=== PATIENT | male | born 1980 | race Caucasian/White ===

== ENCOUNTER → 2022-05-27 15:27 | Outpatient (CLI) | payer BC, SELFPAY ==
--- NOTE | 2022-05-27 | DI.RAD_ITS ---
Exam(s) XR CHEST 2V PA LATERAL EXAM: XR CHEST 2V PA LATERAL CLINICAL HISTORY: SOB R06.02 TECHNIQUE: 2D digital imaging was performed. COMPARISON: No exams were available for comparison FINDINGS: The heart is not enlarged. The lungs are clear and well expanded. No pleural effusion seen. Mediastin al contours appear intact. IMPRESSION: Normal chest. RADIATION DOSE DELIVERED: Total DLP
== END ==
PROVIDERS: PCP Physician Assistant; Visit Provider Physician Assistant Medical
DX: R06.02 Shortness of breath (principal)
CPT/HCPCS: 71046

== ENCOUNTER 2022-05-27 15:46 | Outpatient (REF) | payer BC, SELFPAY ==
[2022-05-27 21:22] LABS: Abs Immature Grans 0.03 10^3/uL (0.0-0.06); Absolute Basophil Count 0.06 10^3/uL (0.0-0.2); Absolute Eosinophil Count 1.05 10^3/uL (0.0-0.7); Absolute Lymphocyte Count 2.07 10^3/uL (1.2-3.4); Absolute Monocyte Count 0.88 10^3/uL (0.1-0.8); Absolute Neutrophil Count 6.65 10^3/uL (1.2-6.7); Basophils % 0.6; Eosinophils % 9.8; HCT 42.2 % (40.0-50.0); HGB 15.2 g/dL (13.5-17.5); Immature Grans % 0.3; Lymphocytes % 19.3; MCH 32.5 pg (27.0-33.0); MCV 90 fL (80-95); MPV 9.9 fL (8.0-11.0); Monocytes % 8.2; Neutrophils % 61.8; Platelet Count 388 10^3/uL (130-400); RBC 4.67 10^6/uL (4.36-5.78); RDW 11.9 % (11.8-14.1); RDW-SD 38.7 fL; WBC 10.74 10^3/uL (4.4-10.8)
[2022-05-27 21:33] LABS: Anion Gap 10.7 mmol/L (3-11); BUN 18 mg/dL (7-18); CO2 24.3 mmol/L (21.0-32.0); Calcium 9.2 mg/dL (8.5-10.1); Chloride 105 mmol/L (98-107); Glucose 86 mg/dL (74-106); Potassium 4.1 mmol/L (3.5-5.1); Sodium 140 mmol/L (136-145)
== END 2022-05-27 15:47 | disposition home or self-care (01) ==
LOC: LBN 15:46
PROVIDERS: PCP Physician Assistant; Visit Provider Physician Assistant Medical
DX: R06.02 Shortness of breath (principal)
CPT/HCPCS: 80048; 85025

== ENCOUNTER 2022-08-30 09:01 | Emergency (ER) | payer BC, SELFPAY ==
--- NOTE | 2022-08-30 09:15 | DI.US_ITS ---
Exam(s) US SCROTUM EXAM: US SCROTUM CLINICAL HISTORY: right scrotal bleeding/hematoma, post vasectomy. TECHNIQUE: Scrotal ultrasound performed using grayscale, color-flow and spectral Doppler analysis. COMPARISON: No exams were available for comparison FINDINGS: Right testicle: 4.8 x 2.1 x 4 cm Left testicle: 3.2 x 1.9 x 1.9 cm Echogenicity: Normal. Contour: Smooth. Mass: None seen. Microlithiasis: None. Hydrocele: Left none. 7.7 x 3.9 x 6.7 centimeter complex collection is noted in the scrotal sac post erior to the testicle. This consistent with a postsurgical seroma or hematoma. Variocele: None. Hernia: No peristalsing bowel loop identified. Epididymis: Normal. Lymph nodes: Mildly enlarged groin lymph nodes, the largest is on the right measuring 2 cm in length, consistent with reactive lymph nodes. DOPPLER: Color: Symmetric and uniform, no hyperemia. Duplex: Bilateral testicular arterial waveforms visualized. IMPRESSION: Normal appearing bilateral testicles. Postsurgical hematoma or seroma post interior to the right testicle. Results of this exam have been verbally communicated with the emergency department provider. DATA REPOSITORY:
[2022-08-30 09:19] VITALS: BP 165/103; PULSE 104; RESP 17; TEMP 36.5; O2SAT 99
--- NOTE | 2022-08-30 09:32 | W.ED.GENAD ---
Discharge Plan Disposition Patient Disposition: Home Condition: Good Discharge Details Chief Complaint: Laceration Clinical Impression: Complication, postoperative, Hematoma of scrotum Primary Care Provider: ALBER MARTINEZ ED Provider: Sky Torres Home Meds and New Rx's Prescriptions: No Action oxycodone 10 mg tablet 10 mg PO Q6H MDD 4 PRN (Reason: pain) Qty: 20 0RF Rx Instructions: Do not fill till 08/27/22 Discharge Instructions Instructions: Hematoma (ED) Additional Instructions: Dr. Travis would like to perform surgery tomorrow. Please arrive here at 9 AM. Do not eat anything after midnight tonight. Take the pain medications we have given you as needed. You can double them if necessary. If you notice any worsening of your symptoms, or any new symptoms such as vomiting, diarrhea, fever, chills, shortness of breath, chest pain, numbness, weakness, or fainting , please return immediately to the emergency department for reevaluation. Please follow up with your primary care provider as soon as possible for reassessment and reevaluation. As always, it was a pleasure participating in your medical care today. Referrals: ALBER MARTINEZ [Primary Care Provider] - Manolo Travis MD [ [facility] STAFF PHYSICIAN] - Medical Decision Making 41-year-old male with a past medical history of a vasectomy on 13 August, with subsequent hematoma which spontaneously began draining on Tuesday of last week which was 6 days ago. There was a subsequent episode of draining a day or so ago as well. The initial large amount of swelling has diminished per the patient however significant swelling and firmness is still continued. He also has notable pain in the right scrotum in the postoperative area. No other complaints at this time. No urinary changes otherwise. He has been taking oxycodone at home for pain. He denies fever or chills. Physical exam demonstrates notable enlargement of the area around the right testicle which on palpation feels to be a hematoma. Also some enlargement on the left as well. Tenderness is present in both areas worse on the right though. Tenderness extends up the right inguinal canal. Minimal penile tenderness. No penile swelling. There does appear to be a small amount of bloody ooze still coming from the burst site. Differential includes continued hematoma, less likely abscess. We will get an ultrasound, monitor closely and reassess. 12:01 PM Ultrasound results show evidence of normal-appearing testicles bilaterally, postsurgical hematoma or seroma in the posterior anterior right testicle area. Right groin lymphadenopathy noted with large lymph nodes. Complex fluid collection is 7.7 x 3.9 x 6.7 cm. We did reach out to Bette Brennan of urology, she recommends evaluation by Dr. Travis for potential surgical drainage. Dr. Travis will come and evaluate the patient after his current operative case. Patient will be given pain medications, and we will get basic labs in case he does need to go to the OR. 1:[address] Travis came and evaluated the patient. He would like to bring the patient to the OR tomorrow morning. Patient will be discharged with his planned OR visit tomorrow at 9. Discussed red flags which to return. We will give some additional pain medications for home use. I have extensively reviewed the treatment plan and discharge instructions with the patient. I have addressed all patient concerns at this time. The patient was made aware of what symptoms to monitor for that would warrant a return to the emergency department. Discussed the plan with the patient, they demonstrate verbal understanding and agreement with our assessment and plan at this time. The documentation in this chart was dictated using [employer] dictation software. Please excuse any dictation errors. FINDINGS: Right testicle: 4.8 x 2.1 x 4 cm Left testicle: 3.2 x 1.9 x 1.9 cm Echogenicity: Normal. Contour: Smooth. Mass: None seen. Microlithiasis: None. Hydrocele: Left none. 7.7 x 3.9 x 6.7 centimeter complex collection is noted in the scrotal sac posterior to the testicle. This consistent with a postsurgical seroma or hematoma. Variocele: None. Hernia: No peristalsing bowel loop identified. Epididymis: Normal. Lymph nodes: Mildly enlarged groin lymph nodes, the largest is on the right measuring 2 cm in length, consistent with reactive lymph nodes. DOPPLER: Color: Symmetric and uniform, no hyperemia. Duplex: Bilateral testicular arterial waveforms visualized. IMPRESSION: Normal appearing bilateral testicles. Postsurgical hematoma or seroma post interior to the right testicle. Results of this exam have been verbally communicated with the emergency department provider. Sign Out No HPI General Date/Time Provider Initiated Documentation: 08/30/22 09:05. HPI Narrative: 41-year-old male with a past medical history of a vasectomy on 13 August, with subsequent hematoma which spontaneously began draining on Tuesday of last week which was 6 days ago. There was a subsequent episode of draining a day or so ago as well. The initial large amount of swelling has diminished per the patient however significant swelling and firmness is still continued. He also has notable pain in the right scrotum in the postoperative area. No other complaints at this time. No urinary changes otherwise. He has been taking oxycodone at home for pain. He denies fever or chills. Related Data Home Medications Medication Instructions Recorded Confirmed oxycodone 10 mg tablet 10 mg PO Q6H PRN pain #20 tabs 08/25/22 08/30/22 Previous Rx's Medication Instructions Recorded oxycodone 10 mg tablet 10 mg PO Q6H PRN pain #20 tabs 08/25/22 Allergies Allergy/AdvReac Type Severity Reaction Status Date / Time No Known Allergies Allergy Verified 08/30/22 09:26 General Stated Complaint: Laceration ELVIS: 3 Review of Systems All systems reviewed & are unremarkable except as noted in HPI and below PFSH All Active Problems (Updated 08/30/22 @ 13:28 by PITER HAIDER) Post surgical complication (Acute) Hematoma of scrotum (Acute) Social History Smoking/Tobacco Use Status: Never Smoking risk assessment performed?: Yes Alcohol Intake: current Alcohol Intake frequency: a few times a week Alcohol type: beer Drug use: Never Substance use type: does not use Do you feel safe at home: Yes Do you feel safe in your relationship?: Yes Exam Narrative Exam Narrative: 1.Const: Well-nourished, Well-developed, appearing stated age 2.Eyes: PERRL, no conjunctival injection, and symmetrical lids. 3.ENT: Atraumatic external nose and ears. Moist MM. Neck: Symmetric, trachea midline, No thyromegaly. 4.CVS: +S1/S2, No murmurs or gallops. Peripheral pulses 2+ and equal in all extremities. Brisk capillary refill in all extremities. 5.RESP: Unlabored respiratory effort. Clear to auscultation bilaterally. No wheezes rales or rhonchi 6.GI: Soft, Nontender/Nondistended, No hepatosplenomegaly. No guarding or rebound. Right scrotum demonstrates notable enlargement of the area around the right testicle which on palpation feels to be a hematoma. Also some enlargement on the left as well. Tenderness is present in both areas worse on the right though. Tenderness extends up the right inguinal canal. Minimal penile tenderness. No penile swelling. There does appear to be a small amount of bloody ooze still coming from the burst site. 7.MSK: Normocephalic/Atraumatic, Extremities w/o deformity or ttp No cyanosis or clubbing, Normal movement of all extremities 8.Skin: Warm, Dry. No rashes or lesions. 9.Neuro: senior writer II-XII grossly intact. Sensation grossly intact, no focal neurologic deficits. 10.Psych: (AAO) x3. Appropriate mood and affect Course Vital Signs Vital signs: Vital Signs Temperature 36.5 C 08/30/22 09:19 Pulse 104 H 08/30/22 09:19 Respiratory Rate 17 08/30/22 09:19 Blood Pressure 165/103 H 08/30/22 09:19 Pulse Oximetry 99 08/30/22 09:19 Temperature 36.5 C 08/30/22 09:19 Temperature Source Temporal Artery Scan 08/30/22 09:19 Pulse 104 H 08/30/22 09:19 Respiratory Rate 17 08/30/22 09:19 Respiratory Effort Non-Labored 08/30/22 09:23 Blood Pressure 165/103 H 08/30/22 09:19 Blood Pressure Position Sitting 08/30/22 09:19 Pulse Oximetry 99 08/30/22 09:19 Oxygen Delivery Method Room Air 08/30/22 09:19 Oxygen Flow Rate 0 08/30/22 09:19 Pain Level 10 08/30/22 09:23 PAWSS Have you Been Recently Intoxicated or Drunk Within the Last 30 days?: No Have you Ever Experienced Previous Episodes of Alcohol Withdrawal?: No Have you ever Experienced Withdrawal Seizures?: No Have you ever Experienced Delirium Tremens(DT)s?: No Have you ever undergone Alcohol Rehabilitation Treatment (i.e, inpt ot outpatient treatment programs)?: No Have you ever Experienced Blackouts?: No Have you ever Combined Alcohol with other Downers within the last 90 days?: No Have you ever Combined Alcohol with any other Substance of Abuse during the last 90 days?: No Result: 0
[2022-08-30] MEDS: Ketorolac 15 MG/ML VIAL IVP (12:04)
[2022-08-30] MEDS: MORPHine 4 MG/ML SYR IVP (12:04)
[2022-08-30 12:07] LABS: Abs Immature Grans 0.04 10^3/uL (0.0-0.06); Absolute Basophil Count 0.03 10^3/uL (0.0-0.2); Absolute Eosinophil Count 0.18 10^3/uL (0.0-0.7); Absolute Lymphocyte Count 1.48 10^3/uL (1.2-3.4); Absolute Monocyte Count 0.86 10^3/uL (0.1-0.8); Basophils % 0.3; Eosinophils % 1.6; HCT 39.2 % (40.0-50.0); HGB 13.7 g/dL (13.5-17.5); Immature Grans % 0.4; MCHC 34.9 % (32.0-36.0); MCV 92 fL (80-95); MPV 8.1 fL (8.0-11.0); Monocytes % 7.5; Neutrophils % 77.2; Platelet Count 501 10^3/uL (130-400); RBC 4.28 10^6/uL (4.36-5.78); RDW 11.8 % (11.8-14.1); RDW-SD 39.5 fL; WBC 11.41 10^3/uL (4.4-10.8)
[2022-08-30 12:12] LABS: Absolute Neutrophil Count 8.81 10^3/uL (1.2-6.7)
[2022-08-30 12:17] LABS: ALT 18 U/L (16-63); AST 13 U/L (15-37); Albumin 3.7 g/dL (3.4-5.0); Alkaline Phosphatase 83 U/L (46-116); Anion Gap 8.8 mmol/L (3-11); BUN 13 mg/dL (7-18); Bilirubin, Total 0.5 mg/dL (0.2-1.0); CO2 27.2 mmol/L (21.0-32.0); CREATININE 1.1 mg/dL (0.70-1.30); Calcium 9.2 mg/dL (8.5-10.1); Chloride 100 mmol/L (98-107); Estimated GFR 85.95 (mL/min/1.73m2); Glucose 82 mg/dL (74-106); Sodium 136 mmol/L (136-145); Total Protein 8.1 g/dL (6.4-8.2)
[2022-08-30 13:36] VITALS: BP 140/86; PULSE 90; RESP 17; TEMP 36.5; O2SAT 99
== END 2022-08-30 13:39 | disposition home or self-care (01) ==
PROVIDERS: Emergency Provider Student in an Organized Health Care Education/Training Program; PCP Nurse Practitioner Family
DX: L76.32 Postprocedural hematoma of skin and subcutaneous tissue following other procedure (principal); Z98.52 Vasectomy status
CPT/HCPCS: 36415; 80053; 96374; 96375; 99284; 76870; 85025; 99283; J1885; J2270

== ENCOUNTER 2022-08-31 08:10 | Day surgery (SDC) | payer BC, SELFPAY ==
--- NOTE | 2022-08-31 07:16 | W.PM.HP.N ---
Date of service: 08/31/22 Time of Service: 09:55 Assessment and Plan Assessment and plan (1) Hematoma of scrotum: Status: Acute Assessment and plan: As he has failed conservative management, we will perform an incision and drainage procedure. I would expect to leave a small drain after the procedure and remove the drain later this week. History of Present Illness History of Present Illness Chief Complaint: Scrotal hematoma Narrative: This is a 41 year old man who underwent vasectomy about 2 to 3 weeks ago. He had pain and swelling following the procedure and has been identified as having a right sided scrotal hematoma. We expected the hematoma to reabsorb with conservative management, but the area began draining cutaneously and has not progressed quickly. He presents for I and D of the hematoma. He has not had any fever or chills. Review of Systems Narrative: No fevers or chills No vision change or dysphasia No diabetes or thyroid dysfunction No shortness of breath, cough or hemoptysis No chest pain or palpitations No nausea, vomiting, hepatitis, ulcers, jaundice No seizures, strokes or peripheral neuropathy No bleeding disorders or anemia No gout PFSH All Active Problems (Updated 08/30/22 @ 13:28 by PITER HAIDER) Post surgical complication (Acute) Hematoma of scrotum (Acute) Surgical History (Updated 08/30/22 @ 15:21 by Sayda Carrera RN) History of appendectomy Social History Smoking/Tobacco Use Status: Never Smoking risk assessment performed?: Yes Alcohol Intake: current Alcohol Intake frequency: a few times a week Alcohol type: beer Drug use: Never Substance use type: does not use Do you feel safe at home: Yes Do you feel safe in your relationship?: Yes Meds Allergies and Home Medications Allergies Allergy/AdvReac Type Severity Reaction Status Date / Time No Known Allergies Allergy Verified 08/30/22 09:26 Home Medications Medication Instructions Recorded Confirmed Type oxycodone 10 mg tablet 10 mg PO Q6H PRN pain #20 tabs 08/25/22 08/31/22 Rx Exam Const General: cooperative Neck Neck: supple Resp Effort & Inspection: normal respiratory effort Auscultation: clear to auscultation bilaterally Cardio Rate: regular rate Rhythm: regular rhythm GI Inspection: normal to inspection Palpation: soft Scrotum: scrotal swelling (right hemiscrotum enlarged and tender - not fluctuant - small open area ) Neuro General: patient alert, patient awake and patient oriented x3
[2022-08-31 08:23] VITALS: BP 149/96; PULSE 79; RESP 16; TEMP 36.7; O2SAT 98
[2022-08-31] MEDS: Lactated Ringers 1,000 ML 80 ML IV (09:15)
--- NOTE | 2022-08-31 10:06 | ANES.PREOP_ITS ---
General Info Date of Service Date Performed: 08/31/22 Height: 5 ft 11 in Weight: 84.6 kg Body Mass Index (BMI): 25.9 Surgical Procedure: Operation Date: 08/31/22 09:25 Proposed Procedure Side Surgeon p Scrotal I&D Right Manolo Travis MD Meds Allergies and Home Medications Allergies Allergy/AdvReac Type Severity Reaction Status Date / Time No Known Allergies Allergy Verified 08/30/22 09:26 Home Medication Medication Instructions Recorded oxycodone 10 mg tablet 10 mg PO Q6H PRN pain #20 tabs 08/25/22 Current Visit Medications: Current Medications Generic Name Dose Route Start Last Admin Trade Name Freq PRN Reason Stop Dose Admin Ringer's Solution 1,000 mls @ 80 mls/hr 08/31/22 06:00 08/31/22 09:15 IV 08/31/22 23:59 80 mls/hr INFUSION ALEJANDRO Administration Cefazolin Sodium/Dextrose 2 gm in 50 mls @ 100 mls/hr 08/31/22 06:00 Ancef Duplex IVPB 08/31/22 23:59 PREOP ALEJANDRO IV Miscellaneous Supplies 1 each 08/31/22 06:00 Iv Access IV 08/31/22 23:59 DIRECTED ALEJANDRO Sodium Chloride 0 ml 08/31/22 06:00 Normal Saline Flush 10 Ml Syr IV 08/31/22 23:59 PRN PRN Sodium Chloride 0 ml 08/31/22 06:00 Normal Saline 10 Ml Vial IJ 08/31/22 23:59 DIRECTED PRN Sterile Water 0 ml 08/31/22 06:00 Water,Injection,Sterile 10 Ml Vial IJ 08/31/22 23:59 DIRECTED PRN PFSH Active Problems Active Problems: Problem Status Onset Code Post surgical complication T81.9XXA Hematoma of scrotum S30.22XA Surgical History Surgical History (Updated 08/30/22 @ 15:21 by Sayda Carrera RN) History of appendectomy Tobacco Smoking/Tobacco Use Status: Never Alcohol Alcohol Intake: current Alcohol intake frequency: a few times a week Alcohol type: beer Substance Use Substance use: Never Substance use type: does not use Vital Signs and Lab Results Vital Signs Most Recent Vital Signs in EMR: Most Recent Vital Signs Temp Pulse Resp BP Pulse Ox 36.7 C 79 16 149/96 H 98 08/31/22 08:23 08/31/22 08:23 08/31/22 08:23 08/31/22 08:23 08/31/22 08:23 Lab Results Blood Type / Crossmatch: No Data to Display Complete Blood Count: White Blood Count 11.41 10^3/uL (4.4-10.8) H 08/30/22 11:56 Red Blood Count 4.28 10^6/uL (4.36-5.78) L 08/30/22 11:56 Hemoglobin 13.7 g/dL (13.5-17.5) 08/30/22 11:56 Hematocrit 39.2 % (40.0-50.0) L 08/30/22 11:56 Platelet Count 501 10^3/uL (130-400) H 08/30/22 11:56 Complete Metabolic Panel: Sodium 136 mmol/L (136-145) 08/30/22 11:56 Potassium 4.0 mmol/L (3.5-5.1) 08/30/22 11:56 Chloride 100 mmol/L (98-107) 08/30/22 11:56 Carbon Dioxide 27.2 mmol/L (21.0-32.0) 08/30/22 11:56 BUN 13 mg/dL (7-18) 08/30/22 11:56 Creatinine 1.1 mg/dL (0.70-1.30) 08/30/22 11:56 Est GFR (CKD-EPI 2020) 85.95 (mL/min/1.73m2) 08/30/22 11:56 Calcium 9.2 mg/dL (8.5-10.1) 08/30/22 11:56 Albumin 3.7 g/dL (3.4-5.0) 08/30/22 11:56 Glucose 82 mg/dL (74-106) 08/30/22 11:56 Liver Function Panel: Alanine Aminotransferase (ALT/SGPT) 18 U/L (16-63) 08/30/22 11: 56 Aspartate Amino Transf (AST/SGOT) 13 U/L (15-37) L 08/30/22 11: 56 Coagulation Panel: No Data to Display Cardiac Panel: No Data to Display Arterial Blood Gas: No Data to Display Venous Blood Gas: No Data to Display Pancreas Panel: No Data to Display Thyroid Panel: No Data to Display Infectious Disease: No Data to Display Blood Cultures: No Data to Display Toxicology Panel: No Data to Display Anesthesia Assessment and Plan Anesthesia History Personal History: No History of Anesthesia Complications Family History: No Family History of Anesthesia Complications and Other Exercise Tolerance Exercise Tolerance: Metabolic Equivalents>4 Pertinent Negatives Pertinent Negatives: No Symptoms of GERD, No Major Cardiovascular Symptoms or Complaints, No Major Pulmonary Symptoms or Complaints and No History of CVA/TIA Cardiac & Pulmonary Exam Cardiac Exam: Normal S1/S2 Heart Sounds Pulmonary Exam: Clear Bilateral Breath Sounds Implantable Cardiac Device Does patient have a Pacemaker or an ICD?: No Airway Exam Known Difficult Airway: No Mallampati Class: 1 Mouth Opening: Normal (> 3cm) Thyromental Distance: Greater than 3 cm Neck Range of Motion: Full ROM Neck Circumference: Normal Teeth Condition: Normal Dentition Airway Comments: #21 chipped/ #41 #31 chipped ASA Classification ASA Score: ASA 2 Emergency Case?: No NPO Status NPO Status: NPO Clears >2 hours, Solids >8 hours Anesthesia Plan Resuscitation Status: Full Code Anesthesia Technique: General Anesthesia Airway Planned: Natural Airway Monitors Used: Standard Monitors
[2022-08-31 10:08] VITALS: BMI 25.9
[2022-08-31] MEDS: ceFAZolin 2 GM/50 ML BAG IVPB (10:40)
[2022-08-31] MEDS: Bupivacaine 0.25% Pres-Free 30 ML VIAL (10:40)
--- NOTE | 2022-08-31 10:52 | W.PM.DSUDISC ---
Date of service: 08/31/22 Time of Service: 10:52 Discharge Plan Disposition Patient Disposition: HOME Condition: Good Discharge Details Reason For Visit: scrotal hematoma Attending Provider: Manolo Travis Primary Care Provider: ALBER MARTINEZ Home Meds and New Rx's Prescriptions: No Action oxycodone 10 mg tablet 10 mg PO Q6H MDD 4 PRN (Reason: pain) Qty: 20 0RF Rx Instructions: Do not fill till 08/27/22 Discharge Instructions Additional Instructions: change dressing as needed (expect drainage for few days) OK to shower followup later this week for drain removal (the drain is not secured with a suture, so it may come out on its own before the week is up) Activity:: Activity as Tolerated Shower/Bathe:: 24 hours Activity:: Activity as Tolerated Diet:: As Tolerated DS: Diagnosis Discharge Diagnosis (1) Hematoma of scrotum: Status: Acute
--- NOTE | 2022-08-31 10:56 | ROE_ITS ---
Date of service: 08/31/22 Time of Service: 10:57 Operative Note Operative Note DATE OF PROCEDURE: 08/31/22 PRE-OP DIAGNOSIS: scrotal hematoma POST-OP DIAGNOSIS: same PROCEDURE: incision and drainage of scrotal hematoma SURGEON: Manolo Travis ANESTHESIA TYPE: Local By Surgeon and General:No Airway Refer to Anesthesia Record PATHOLOGY: none sent COMPLICATIONS: None Patient was transported to: same day Patient's condition: stable Implants: everett drain Indications: This is a 41-year-old gentleman who underwent a vasectomy about 3 weeks ago. He developed a right sided scrotal hematoma following the procedure. We expected the hematoma to reabsorb on its own, but the patient's symptoms have progressed and he began spontaneously draining from the right hemiscrotum. He presents now for incision and drainage Findings: Large hematoma with no purulent fluid Procedure Description: The patient was brought to the operating room on 08/31/2022. He was given preoperative IV antibiotics and placed in the supine position. His genitalia was prepped. The area surrounding the right scrotal opening was infiltrated with quarter percent Marcaine without epinephrine. The drainage site was opened sharply and the incision was extended wide enough to allow placement of the surgeon's finger. We were then able to evacuate a large amount of hematoma. No active bleeding was identified. No purulent material was identified. We then irrigated the wound using saline. We reapproximated the edges of the wound loosely using 2-0 chromic suture. In the center of the wound, we placed a Melvern drain to allow any additional material to drain freely. We then applied a fluff dressing and a scrotal support. The patient tolerated this procedure well with no complications.
--- NOTE | 2022-08-31 10:59 | W.PM.DSUDISC ---
Date of service: 08/31/22 Time of Service: 11:01 Discharge Plan Disposition Patient Disposition: HOME Condition: Good Discharge Details Reason For Visit: scrotal hematoma Attending Provider: Manolo Travis Primary Care Provider: ALBER MARTINEZ Home Meds and New Rx's Prescriptions: New oxycodone 5 mg tablet 5 - 10 mg PO Q6H MDD 8 PRN (Reason: pain) Qty: 30 0RF No Action oxycodone 10 mg tablet 10 mg PO Q6H MDD 4 PRN (Reason: pain) Qty: 20 0RF Rx Instructions: Do not fill till 08/27/22 Discharge Instructions Additional Instructions: change dressing as needed (expect drainage for few days) OK to shower followup later this week for drain removal (the drain is not secured with a suture, so it may come out on its own before the week is up) Activity:: Activity as Tolerated Shower/Bathe:: 24 hours Activity:: Activity as Tolerated Diet:: As Tolerated DS: Diagnosis Discharge Diagnosis (1) Hematoma of scrotum: Status: Acute
[2022-08-31 11:03] VITALS: BP 141/95; PULSE 99; RESP 18; TEMP 36.4; O2SAT 96
--- NOTE | 2022-08-31 11:03 | W.ANESPOSTOP ---
Postoperative Evaluation Date, Time and Location Date Performed: 08/31/22 Time Performed: 11:03 Patient Location: Day Surgery Unit Vital Signs Most Recent Imported Vital Signs: Most Recent Vital Signs Temp Pulse Resp BP Pulse Ox 36.7 C 79 16 149/96 H 98 08/31/22 08:23 08/31/22 08:23 08/31/22 08:23 08/31/22 08:23 08/31/22 08:23 Most Recent Manually Entered Vital Signs: Adult Blood Pressure: 141/95 Heart Rate: 102 Respirations: 12 Oxygen Saturation (%): 98 Temperature (C): 36.3 C Pain Score (0-10 Scale): 0 Pain Score Most Recent Pain Score: Most Recent Pain Score Pain Level 6 08/31/22 08:23 Assessment Mental Status: Awake (Alert & Oriented to Patient Baseline) Airway and Respiratory Function: Patent airway with normal (patient baseline) respiratory exam Cardiovascular Function: Hemodynamically Stable Hydration Status: Adequately Hydrated Nausea & Vomiting: No Nausea or Vomiting Pain: Pain is tolerable per patient Peripheral Nerve Block: Patient did not receive a nerve block
[2022-08-31 11:04] VITALS: BP 141/95; PULSE 102; RESP 12; TEMPC 36.3; O2SAT 98
[2022-08-31] MEDS: oxyCODONE 5 MG TAB PO (11:15)
[2022-08-31 11:30] VITALS: BP 151/105; PULSE 90; TEMP 36; O2SAT 100
[2022-08-31 12:04] VITALS: BP 162/95; PULSE 93; TEMP 36.3; O2SAT 100
[2022-08-31] MEDS: MORPHine 4 MG/ML SYR IVP ×2 (12:44→13:20)
[2022-08-31 13:14] VITALS: BP 151/86; PULSE 90; RESP 18; TEMP 36.2; O2SAT 96
[2022-08-31] MEDS: Normal Saline Flush 10 ML SYR IV (13:18)
--- NOTE | 2022-08-31 16:22 | NUR.NOTE ---
Nursing Note: Pt given 3mg Morphine at 13:20 prior to d/c from [facility] at 13:30. Dilia Kenney RN inadvertently forgot to take a monitoring set of vital signs before pt d/c from [facility]. Karly LARES telephoned pt and SO at home at 3:50pm 08/31/22 to check on pt. SO (spouse, Neli) reported pt wassettled & comfortable. He is awake and visiting with family and friends at home.
== END 2022-08-31 13:28 | disposition home or self-care (01) ==
PROVIDERS: PCP Nurse Practitioner Family; Visit Provider Urology
PROC: (CPT 54700; principal; 2022-08-31 09:15)
DX: S30.22XA Contusion of scrotum and testes, initial encounter (principal); N99.840 Postprocedural hematoma of a genitourinary system organ or structure following a genitourinary system procedure; Y83.8 Other surgical procedures as the cause of abnormal reaction of the patient, or of later complication, without mention of misadventure at the time of the procedure; X58.XXXA Exposure to other specified factors, initial encounter
CPT/HCPCS: 54700; J0131; J0690; J1100; J1885; J2250; J2270; J2405

== ENCOUNTER → 2024-03-29 09:06 | Outpatient (CLI) | payer BC, SELFPAY ==
--- NOTE | 2024-03-29 09:07 | DI.RAD_ITS ---
Exam(s) XR CHEST 2V PA LATERAL EXAM: XR CHEST 2V PA LATERAL CLINICAL HISTORY: coughing R06.00 DYSPNEA TECHNIQUE: 2D digital imaging was performed of the chest. Two images were obtained. PA and lateral views were obtained. COMPARISON: CR XR CHEST 2V PA LATERAL from 05/27/2022 FINDINGS: MEDIASTINUM: Normal. HEART: Normal. PULMONARY VASCULATURE: Normal. LUNGS: Clear. PLEURAL SPACE: No pleural effusion or pneumothorax. BONE:Within normal limits for the patient's age. OTHER FINDINGS:Normal. IMPRESSION: No acute pulmonary findings. DATA REPOSITORY: RADIATION DOSE DELIVERED:
== END ==
PROVIDERS: Visit Provider Physician Assistant Surgical
DX: R06.00 Dyspnea, unspecified (principal)
CPT/HCPCS: 71046

== ENCOUNTER 2024-03-29 09:22 | Outpatient (REF) | payer BC, SELFPAY ==
[2024-03-29 10:01] LABS: Abs Immature Grans 0.02 10^3/uL (0.0-0.06); Absolute Basophil Count 0.06 10^3/uL (0.0-0.2); Absolute Eosinophil Count 1.18 10^3/uL (0.0-0.7); Absolute Lymphocyte Count 1.43 10^3/uL (1.2-3.4); Absolute Monocyte Count 0.79 10^3/uL (0.1-0.8); Basophils % 0.8 %; Eosinophils % 15.2 %; HCT 46.2 % (40.0-50.0); HGB 16.5 g/dL (13.5-17.5); Immature Grans % 0.3 %; Lymphocytes % 18.4 %; MCH 32.5 pg (27.0-33.0); MCHC 35.7 % (32.0-36.0); MCV 91 fL (80-95); MPV 9.1 fL (8.0-11.0); Monocytes % 10.2 %; Neutrophils % 55.1 %; Platelet Count 377 10^3/uL (130-400); RBC 5.08 10^6/uL (4.36-5.78); RDW 11.6 % (11.8-14.1); RDW-SD 39.2 fL; WBC 7.78 10^3/uL (4.4-10.8)
[2024-03-30 09:28] LABS: IgE 1064 IU/mL (<158)
== END 2024-03-29 09:23 | disposition home or self-care (01) ==
LOC: LBN 09:22
PROVIDERS: Visit Provider Physician Assistant Surgical
DX: J45.909 Unspecified asthma, uncomplicated (principal)
CPT/HCPCS: 82785; 85025

== ENCOUNTER 2024-04-10 04:59 | Outpatient (CLI) | payer BC, SELFPAY ==
[2024-04-10] MEDS: Levalbuterol HFA 15 GM INH 4 PUFF IH (11:47)
[2024-04-10] MEDS: Inhaler, Assist Device 1 EACH MC (11:48)
--- NOTE | 2024-04-10 15:11 | W.PFT ---
Date of service: 04/10/24 Time of Service: 10:05 Pulmonary Function Test Result Requesting Provider Cesia Hewitt Indications: JACOBSEN Interpretation Spirometry: abnormal FEV1/FVC, mild decrease FEV1. Lung Volumes: Normal lung volumes w/ air trapping Diffusion Capacity: Normal diffusion. Impression Mild obstructive ventilatory defect w/ no reversibility. Normal lung volumes w/ mild air trapping Normal diffusion. Flow volume curve is of suboptimal quality and not reproducible. Clinical Correlation therefore is recommended.
== END 2024-04-10 05:00 | disposition home or self-care (01) ==
LOC: RT 04:59
PROVIDERS: Visit Provider Physician Assistant Surgical
DX: R06.00 Dyspnea, unspecified (principal); J44.9 Chronic obstructive pulmonary disease, unspecified
CPT/HCPCS: 00123; 94060; 94726; 94729

== ENCOUNTER 2025-01-03 18:13 | Outpatient (REF) | payer BC, SELFPAY ==
[2025-01-03 17:29] LABS: Abs Immature Grans 0.04 10^3/uL (0.0-0.06); Absolute Basophil Count 0.06 10^3/uL (0.0-0.2); Absolute Eosinophil Count 0.69 10^3/uL (0.0-0.7); Absolute Lymphocyte Count 2.03 10^3/uL (1.2-3.4); Absolute Monocyte Count 1.03 10^3/uL (0.1-0.8); Absolute Neutrophil Count 5.52 10^3/uL (1.2-6.7); Basophils % 0.6 %; Eosinophils % 7.4 %; HCT 44.7 % (40.0-50.0); HGB 16.2 g/dL (13.5-17.5); Immature Grans % 0.4 %; Lymphocytes % 21.7 %; MCH 33.6 pg (27.0-33.0); MCHC 36.2 % (32.0-36.0); MCV 93 fL (80-95); MPV 9.6 fL (8.0-11.0); Neutrophils % 58.9 %; Platelet Count 337 10^3/uL (130-400); RBC 4.82 10^6/uL (4.36-5.78); RDW 11.9 % (11.8-14.1); RDW-SD 40.2 fL; WBC 9.37 10^3/uL (4.4-10.8)
[2025-01-04 19:19] LABS: IgE 640 IU/mL (<158)
== END 2025-01-03 18:14 | disposition home or self-care (01) ==
LOC: LBN 18:13
PROVIDERS: Visit Provider Physician Assistant Surgical
DX: J30.9 Allergic rhinitis, unspecified (principal); J45.40 Moderate persistent asthma, uncomplicated; R06.00 Dyspnea, unspecified; R05.9 Cough, unspecified
CPT/HCPCS: 82785; 85025